=== PATIENT | female | born 1945 | race Caucasian/White ===

== ENCOUNTER → 2017-11-22 | Outpatient (CLI) | payer OTHER ==
--- NOTE | 2017-11-22 16:42 | PCVCIMAG ---
APPROVED REPORT Study performed: 11/22/2017 13:13:46 EXAM: Comprehensive 2D, Doppler, and color-flow Echocardiogram Patient Location: Echo lab Status: routine BSA: 1.75 HR: 103 bpmBP: 140/80 mmHg Rhythm: NSR Other Information Study Quality: Technically Limited Indications Atrial Fibrillation Hypertension/HDD COPD , RBBB 2D Dimensions RVDd: 25.54 mm IVSd: 12.10 (7-11mm)LVOT Diam: 19.15 (18-24mm) LVDd: 35.03 mm PWd: 11.89 (7-11mm)Ascending Ao: 30.88 (22-36mm) LVDs: 28.87 (25-40mm) Left Atrium: 30.14 (27-40mm) Aortic Root: 28.88 mm LV Single Plane 4CH: 55.35 % Volumes Left Atrial Volume (Systole) Single Plane 4CH: 20.30 mLSingle Plane 2CH: 30.13 mL LA ESV Index: 16.00 mL/m2 Aortic Valve AoV Peak Jah.: 1.16 m/s AO Peak Gr.: 5.41 mmHg Mitral Valve E/A Ratio: 1.1 MV E Max Jah.: 1.15 m/s MV A Jah.: 1.06 m/s Left Ventricle The left ventricle is normal size. There is normal LV segmental wall motion. There is normal left ventricular wall thickness. Left ventricular systolic function is normal. The left ventricular ejection fraction is within the normal range. LVEF is >55%. This study is not technically sufficient to allow evaluation of the LV diastolic function. Right Ventricle Right ventricle is dilated. The right ventricular systolic function is normal. Atria The left atrium size is normal. The right atrium size is normal. Aortic Valve The aortic valve is normal in structure. No aortic regurgitation is present. There is no aortic valvular stenosis. Mitral Valve The mitral valve is normal in structure. There is no mitral valve regurgitation noted. No evidence of mitral valve stenosis. Tricuspid Valve The tricuspid valve is normal in structure. There is no tricuspid valve regurgitation noted. Pulmonic Valve The pulmonary valve is normal in structure. There is no pulmonic valvular regurgitation. Great Vessels The aortic root is normal in size. IVC is normal in size and collapses >50% with inspiration. Pericardium There is no pericardial effusion. <Conclusion> The left ventricle is normal size. LVEF is >55%. This study is not technically sufficient to allow evaluation of the LV diastolic function. Right ventricle is dilated. The left atrium size is normal. The aortic valve is normal in structure. There is no mitral valve regurgitation noted. There is no tricuspid valve regurgitation noted. The aortic root is normal in size. There is no pericardial effusion.
== END | disposition home or self-care (01) ==
LOC: PCVCIMAG 15:38
PROVIDERS: ATTEND Internal Medicine Cardiovascular Disease
DX: I48.91 Unspecified atrial fibrillation (principal); I45.10 Unspecified right bundle-branch block; F17.200 Nicotine dependence, unspecified, uncomplicated
CPT/HCPCS: 93306

== ENCOUNTER → 2017-12-08 | Outpatient (CLI) | payer OTHER, MEDICAID ==
[~2017-12-08] MED LIST: REGADENOSON 0.4 MG/5 ML DISP.SYRIN. IV ONE
--- NOTE | 2017-12-08 19:18 | PCVCIMAG ---
APPROVED REPORT Imaging Protocol: Rest Tc-99m/Stress Tc-99m 1 day Study performed: 12/08/2017 10:31:18 Indication: Dyspnea, P-Atrial Fibrillation, RBBB Patient Location: Out-Patient Stress Nurse: Elise Jerome RN [place] Tech:Samia Laurent [facility] Ht: 5 ft 5 in Wt: 150 lbs BSA: 1.75 m2 HR: 93 bpm BP: 187/77 mmHg BMI: 24.9 Rhythm: NSR, RBBB Medical History Medical History: HTN, Hyperlipidemia, COPD, Current Smoker, Age Medications: Albuterol, Atorvastain, Metoprolol, Spiriva Allergies: Benadryl, Codeine, Darvocet Pretest Chest Pain Characteristics: No chest pain Exercise History: Sedentary Resting Data Rest SPECT myocardial perfusion imaging was performed in supine position 45 minutes following the intravenous injection of 10.2 mCi of Tc-99m Sestamibi. Time of rest injection: 944 Date: 12/08/2017 Administration Route: IV Administration Site: Left Hand Pharmacologic Stress Pharmacologic stress test was performed by injecting Regadenoson 0.4 mg IV push over 10-15 seconds immediately followed by the intravenous injection of 30.4 mCi of Tc-99m Sestamibi. Time of stress injection: 1145 Date: 12/08/2017 Administration Route: IV Administration Site: Left Hand Gated Stress SPECT was performed 45 minutes after stress injection. The images were gated to evaluate regional wall motion and calculate left ventricular ejection fraction. Stress Test Details Stress Test: Pharmacologic stress testing performed using 0.4 mg of regadenoson per 5 mL given IV over 10 seconds. Reason for pharmacologic stress test: physical limitation. HRMax Heart Rate (APMHR): 147 bpm Resting HR: 93 bpmTarget HR (85% APMHR): 124 bpm Max HR Achieved: 126 bpm % of APMHR: 85 Recovery HR: 111 bpm BP Resting BP: 187/77 mmHg Recovery BP: 177/77 mmHg ECG Resting ECG: Sinus Rhythm, RBBB Stress ECG: Sinus Tachycardia. RBBB Recovery ECG: Sinus Tachycardia, RBBB Clinical Reason for Termination: Completed protocol Stress Symptoms: Dyspnea, Headache, Lightheaded Exercise duration: 0 min 55 sec Symptoms resolved with caffeine. Stress ECG Conclusion ECG: Non-ischemic Study Quality Study: Good Study Data Post stress, the left ventricular ejection was 73%.. SSS: 0 SRS: 4 SDS: 0 TID = 0.75. Perfusion No evidence of stress induced ischemia or prior myocardial infarction. Wall Motion Normal left ventricular size and function with no regional wall motion abnormalities. Nuclear Conclusion No evidence of stress induced ischemia or prior myocardial infarction. Normal left ventricular size and function with no regional wall motion abnormalities. Post stress, the left ventricular ejection was 73%.. No prior study available for comparison. Interpreted by: Andre Bryan MD Electronically Approved: 12/08/2017 19:14:21 <Conclusion> ECG: Non-ischemic
--- NOTE | 2017-12-08 19:35 | PCVCIMAG ---
EXAM: AORTOILIAC DUPLEX INDICATION: Abdominal aortic aneurysm. FINDINGS: AORTA: Suprarenal aorta measures maximum diameter of 2.3 cm. There is a fusiform infrarenal aortic aneurysm. The infrarenal aorta measures maximum diameter of 3.4 x 3.5 cm. No aortic stenosis. RIGHT COMMON ILIAC ARTERY: Maximum diameter is 1.2 cm. No significant stenosis. RIGHT EXTERNAL ILIAC ARTERY: No significant stenosis. LEFT COMMON ILIAC ARTERY: Maximum diameter is 1.1 cm. No significant stenosis. LEFT EXTERNAL ILIAC ARTERY: No significant stenosis. IMPRESSION: 3.5 cm infrarenal abdominal aortic aneurysm. LOC:[id number]
== END | disposition home or self-care (01) ==
LOC: PCVCIMAG 13:42
PROVIDERS: ATTEND Internal Medicine Cardiovascular Disease
DX: I71.4 Abdominal aortic aneurysm, without rupture (principal); I45.10 Unspecified right bundle-branch block; I48.0 Paroxysmal atrial fibrillation; J44.9 Chronic obstructive pulmonary disease, unspecified; F17.200 Nicotine dependence, unspecified, uncomplicated
CPT/HCPCS: 78452; 93017; 93978; A9500; J2785